=== PATIENT | female | born 1995 | race Caucasian/White ===

== ENCOUNTER 2022-04-13 12:55 | Emergency (ER) | payer SELFPAY ==
[2022-04-13 13:58] VITALS: BP 107/71; PULSE 103; RESP 17; TEMP 98.4; BMI 25.6
[2022-04-13 14:54] LABS: HCG,QUALITATIVE URINE Negative
[2022-04-13] MEDS ORDERED: cefTRIAXone SODIUM 1 GM VIAL ONE (14:58)
[2022-04-13 15:10] LABS: EPI CELLS 15 /uL (0-25.1); HYALINE CASTS 1 /uL (0-3.1); PH,URINE 7.5 (5.0-8.0); URINE APPEARANCE CLOUDY; URINE BACTERIA >9,000 /uL (0-1359); URINE BILIRUBIN NEGATIVE (NEGATIVE); URINE COLOR YELLOW; URINE GLUCOSE (UA) NEGATIVE (NEGATIVE); URINE KETONE NEGATIVE (NEGATIVE); URINE LEUK ESTERASE 1+ (NEGATIVE); URINE NITRITE POSITIVE (NEGATIVE); URINE PROTEIN NEGATIVE (NEGATIVE); URINE RBC 3 /uL (0-23.9); URINE WBC 123 /uL (0-25.8)
== END 2022-04-13 16:41 | disposition home or self-care (01) ==
LOC: JER 12:55 → JERFT 12:55
DX: R30.0 Dysuria (principal)
CPT/HCPCS: 36415; 81003; 84703; 87491; 87591; 99284-25